=== PATIENT | female | born 1970 | race Caucasian/White ===

== ENCOUNTER → 2019-10-17 | Outpatient (CLI) | payer BC | LOC: COL.RAD 14:09 | DX: N93.8 Other specified abnormal uterine and vaginal bleeding (principal) ==

== ENCOUNTER → 2020-01-28 | Outpatient (CLI) | payer BC | LOC: ZCOL.LAB 15:46 | DX: R50.9 Fever, unspecified (principal); R19.7 Diarrhea, unspecified; Z20.828 Contact with and (suspected) exposure to other viral communicable diseases ==